=== PATIENT | female | born 1985 | race Caucasian/White ===

== ENCOUNTER 2016-11-19 16:50 | Inpatient (IN) | payer OTHER ==
[~2016-11-19 16:50] MED LIST: BUPIVACAINE (PF) 0.25% 30 ML VIAL ONE; SODIUM CHLORIDE 0.9% 100 ML BAG ONE; fentaNYL (PF) 50 MCG/ML 5 ML AMP ONE
[2016-11-19] MEDS ORDERED: OXYTOCIN 10 UNIT/ML 1 ML VIAL IM PRN (18:11)
[2016-11-19] MEDS ORDERED: LIDOCAINE 1% (PF) 10 MG/ML (30 ML SDV) SQ PRN (18:11)
[2016-11-19] MEDS ORDERED: METHYLERGONOVINE 0.2 MG/ML 1 ML AMP IM PRN (18:11)
[2016-11-19] MEDS ORDERED: CARBOPROST TROMETHAMINE 250 MCG/ML 1 ML AMP IM PRN (18:11)
[2016-11-19] MEDS ORDERED: TERBUTALINE 1 MG/ML VIAL SQ PRN (18:11)
[2016-11-19] MEDS ORDERED: OXYTOCIN 20 UNITS/1000 ML NS 1,000 ML IV SCH (18:15)
[2016-11-19] MEDS ORDERED: LACTATED RINGERS 1,000 ML IV SCH (18:15)
[2016-11-19] MEDS: LACTATED RINGERS 1,000 ML IV SCH (18:20)
[2016-11-19 18:23] LABS: Basophils % (A) 0 %; CH 27.3; CHCM 33.5; Eosinophils # (A) 0.3 k/uL (0-0.7); Eosinophils % (A) 2 %; HDW 3.25; HGB 11.6 gm/dL (11.4-16.0); Luc # (Auto) 0.23; Luc % (Auto) 1; Lymphocytes # (A) 0.8 k/uL (1.0-4.8); Lymphocytes % (A) 5 %; MCH 27.1 pg (25.0-35.0); MCHC 33.1 g/dL (31.0-37.0); MCV 81.9 fL (80.0-100.0); Mean Platelet Volume 7.1; Monocytes # (A) 0.6 k/uL (0-1.0); Monocytes % (A) 3 %; Neutrophils # (A) 15.3 k/uL (1.3-7.7); Neutrophils % (A) 89 %; RBC 4.28 m/uL (3.80-5.40); RDW 13.6 % (11.5-15.5); WBC 17.2 k/uL (3.8-10.6); WBC (Perox) 18.76
[2016-11-19 18:31] LABS: Prothrombin Time 9.8 sec (9.0-12.0)
[2016-11-19 18:50] LABS: Partial Thromboplastin Time 20.8 sec (22.0-30.0)
[2016-11-19 19:51] VITALS: BMI 31.9
[2016-11-19] MEDS: BUTORPHANOL 1 MG/ML 1 ML VIAL IV PRN (23:58)
[2016-11-20] MEDS: LACTATED RINGERS 1,000 ML IV SCH (00:10)
[2016-11-20] MEDS: BUTORPHANOL 1 MG/ML 1 ML VIAL IV PRN ×2 (03:31→08:01)
[2016-11-20] MEDS ORDERED: PENICILLIN G POTASSIUM 5,000,000 UNIT in DEXTROSE 5% IN WATER 100 ML IVPB STA ×2 (06:35)
--- NOTE | 2016-11-20 07:32 | P.HPOB ---
History of Present Illness H&P Date: 11/20/16 This is a 31-year-old female 5 para 3013 EDC 12/01/2016 at 38-2/7 weeks ' gestation. Patient presents to labor and delivery with a history of leaking fluid. She denies uterine contractions. Fetus is been active throughout the . Fluid was clear per her recall, she denies vaginal bleeding. Current medications Lovenox 40 mg daily vitamin daily Past medical history is significant for kidney stones. Past surgical history cholecystectomy, colposcopy, removal of kidney stone. ALLERGIES none known. Family history significant for diabetes and hypertension. We ko history blood type is A+, rubella status immune. VDRL testing, hepatitis B surface antigen, HIV testing, group B strep cultures negative. Gonorrhea cultures negative. One-hour Glucola 97. On exam this is a pleasant female, 5 foot 5 inches, 182 pounds, vital signs are stable and she is afebrile. The general physical exam is within normal limits. In checking the cervix there is a fore bag, this is ruptured for clear fluid. Cervix is 2-3 cm, posterior, -2 station, vertex presentation, 50% effaced. heart tones are consistent with reactive NST. Impression: 38-2/7 weeks intrauterine , history of spontaneous rupture membranes but fore bag ruptured at this time. Early labor. Plan: Penicillin prophylaxis for history of possible prolonged ruptured membranes. Oxytocin per hospital protocol. Close maternal and surveillance. Anticipating normal spontaneous vaginal delivery. Past Medical History Past Medical History: Deep Vein Thrombosis (DVT) Additional Past Medical History / Comment(s): pancreatisis. on heptrin injections with preg History of Any Multi-Drug Resistant Organisms: None Reported Additional Past Surgical History / Comment(s): 2010 pancreatic surgery Past Anesthesia/Blood Transfusion Reactions: No Reported Reaction Past Psychological History: No Psychological Hx Reported Smoking Status: Never smoker Past Drug Use History: None Reported - Past Family History Father Family Medical History: Diabetes Mellitus, Hypertension Medications and Allergies Home Medications Medication Instructions Recorded Confirmed Type Pnv with Ca,No.72/Iron/FA 1 tab PO DAILY 11/19/16 11/19/16 History [ Plus Tablet] Allergies Allergy/AdvReac Type Severity Reaction Status Date / Time No Known Allergies Allergy Verified 11/19/16 19:52 Exam - Vital Signs Vital signs: Vital Signs Temp Pulse Resp BP 11/19/16 19:00 97.2 F L 108 H 16 138/86 Intake and Output 11/19/16 11/20/16 11/20/16 22:59 06:59 14:59 Other: Weight 87.09 kg Results Result Diagrams: 11/19/16 18:15 Abnormal Lab Results - Last 24 Hours (Table) 11/19/16 11/19/16 Range/Units 18:15 18:15 WBC 17.2 H (3.8-10.6) k/uL Neutrophils # 15.3 H (1.3-7.7) k/uL Lymphocytes # 0.8 L (1.0-4.8) k/uL APTT 20.8 L (22.0-30.0) sec
[2016-11-20] MEDS ORDERED: diphenhydrAMINE 25 MG CAP PO PRN (11:21)
[2016-11-20] MEDS ORDERED: HYDROCORTISONE 2.5% RECTAL CREAM 30 GM TUBE RECTAL PRN (11:21)
[2016-11-20] MEDS ORDERED: diphenhydrAMINE ELIXIR 25 MG/10 ML CUP PO PRN (11:21)
[2016-11-20] MEDS ORDERED: ZOLPIDEM 5 MG TAB PO PRN (11:21)
[2016-11-20] MEDS ORDERED: ACETAMINOPHEN TAB 325 MG TAB PO PRN (11:21)
[2016-11-20] MEDS ORDERED: diphenhydrAMINE 50 MG CAP PO PRN (11:21)
[2016-11-20] MEDS ORDERED: WITCH HAZEL 1 EACH MED..PAD TOPICAL PRN (11:21)
[2016-11-20] MEDS ORDERED: SIMETHICONE 80 MG CHEWABLE PO PRN (11:21)
[2016-11-20] MEDS ORDERED: BENZOCAINE/MENTHOL SPRAY 1 GM/SPRAY AEROSOL TOPICAL PRN (11:21)
[2016-11-20] MEDS ORDERED: diphenhydrAMINE 50 MG/ML 1 ML VIAL IVP PRN ×2 (11:21)
[2016-11-20] MEDS ORDERED: LANOLIN CREAM 5 GM TUBE TOPICAL PRN (11:21)
--- NOTE | 2016-11-20 11:21 | P.PROBDLV ---
Vaginal Delivery Note - . Vaginal Delivery Note: This is a 31-year-old 5 para 3013 EDC 12/01/2016 at 38-2/7 weeks' gestation. Patient presented to labor and delivery with spontaneous amniorrhexis, clear fluid. She was noted to be unfavorable, posterior, high, long, 1-2 cm dilated. is remarkable for patient being on heparin therapy for history of PE in the past. Recommendation was made for Lovenox but patient states her insurance would not cover that medication. Blood type is A+ , group B strep cultures negative, please see my dictated history and physical for details. Oxytocin was started and titrated per hospital protocol. Artificial amniorrhexis of a fore bag revealed clear fluid. Antibiotics were given for history of prolonged ruptured membranes over 12 hours. Epidural was placed per her request. Patient became completely dilated at 11 AM. Perineal body was prepped and draped in usual sterile fashion. With excellent expulsive efforts the infant's head delivered occiput anterior and restituted accordingly. There was a nuchal cord 1 that was reduced on the perineal body. The left or anterior shoulder was then gently and easily delivered from underneath the pubic symphysis at which time the oral pharynx, nasopharynx and external nares were all bulb suctioned on the perineal body. Patient was officially delivered of a liveborn female at 1106 hrs. Umbilical cord was doubly clamped and ligated, she was handed to waiting nurses for evaluation where scores of 9 and 9 at one and 5 minutes respectively were given. The placenta delivered spontaneous spontaneously, it was inspected and noted to be intact with trivascular cord at 1112 hours. At this time the perineal body was redraped. Inspection of the cervix, vagina, perineum and periurethral areas revealed no lacerations or defects. Fundus is firm and in the midline, symmetric and 18 week size upon completion of delivery. Total estimated blood loss 300 mL's. Infant weighed 8 lbs. 7 oz. or 3830 g. I will restart her Lovenox as recommended by high-risk team.
[2016-11-20] MEDS: IBUPROFEN 600 MG TAB PO PRN ×2 (14:53→21:34)
[2016-11-21] MEDS: Acetaminophen-Codeine 300-30mg TAB PO PRN ×2 (00:24→20:15)
[2016-11-21] MEDS: SENNOSIDES-DOCUSATE SODIUM 1 EACH TAB PO SCH ×3 (02:33→20:16)
[2016-11-21] MEDS: IBUPROFEN 600 MG TAB PO PRN ×2 (07:58→16:16)
[2016-11-21] MEDS: ENOXAPARIN 40 MG/0.4 ML SYRINGE SQ SCH (07:59)
--- NOTE | 2016-11-21 10:50 | P.PNOBGVD ---
Subjective - Subjective Patient reports: Reports appetite normal, Reports voiding normally, Reports pain well controlled, Reports ambulating normally : doing well Objective - Latest Vital Signs Latest vital signs: Vital Signs Temp Pulse Resp BP 11/21/16 08:00 97.9 F 90 16 114/73 11/21/16 00:00 98.2 F 101 H 16 105/60 11/20/16 20:00 98.0 F 106 H 16 108/59 11/20/16 16:30 98.1 F 99 16 118/75 11/20/16 13:15 105 H 16 138/84 11/20/16 12:40 97.4 F L 103 H 16 129/85 11/20/16 12:10 108 H 16 120/69 11/20/16 11:55 109 H 16 123/73 11/20/16 11:40 106 H 16 129/78 11/20/16 11:25 111 H 16 125/65 11/20/16 11:10 114 H 16 113/59 Intake and Output 11/20/16 11/21/16 11/21/16 22:59 06:59 14:59 Other: # Voids 1 - Exam Lungs: bilateral: normal Chest: Normal S1, Normal S2 Extremities: Present: normal Abdomen: Present: normal appearance, soft Uterus: Present: normal, firm (The fundus as tonic and nontender at the umbilicus.) Assessment and Plan (1) History of pulmonary embolism Current Visit: Yes Status: Acute Code(s): Z86.711 - PERSONAL HISTORY OF PULMONARY EMBOLISM SNOMED Code(s): 577185250 (2) Normal spontaneous vaginal delivery Narrative/Plan: Continue routine care. The infant continues to be under observation for prolonged rupture of membranes though white count was normal. I anticipate discharge home tomorrow. She continues to be on Lovenox 40 mg daily and will be discharged home on heparin 5000 mg subcutaneously twice daily as this is what her insurance will cover. This will continue for 6 weeks time. Current Visit: Yes Status: Acute Code(s): O80 - ENCOUNTER FOR FULL-TERM UNCOMPLICATED DELIVERY SNOMED Code(s): 92642584
[2016-11-21] MEDS: LACTATED RINGERS 1,000 ML IV SCH (17:04)
[2016-11-22] MEDS: IBUPROFEN 600 MG TAB PO PRN (04:56)
[2016-11-22 08:48] VITALS: BP 101/55; PULSE 88; RESP 18; TEMP 98
[2016-11-22] MEDS: SENNOSIDES-DOCUSATE SODIUM 1 EACH TAB PO SCH (08:49)
--- NOTE | 2016-11-22 08:53 | P.DS ---
Providers Date of admission: 11/19/16 18:16 Expected date of discharge: 11/22/16 Attending physician: Juanito Shipley Primary care physician: Stated None - Discharge Diagnosis(es) (1) History of pulmonary embolism Current Visit: Yes Status: Acute (2) Normal spontaneous vaginal delivery Current Visit: Yes Status: Acute Hospital Course: The patient is a 31-year-old 5 para 3013 admitted at 38-2/7 weeks by good dating parameters. She is admitted to labor and delivery with documented spontaneous rupture of membranes not in labor. Her was complicated by a history of a previous pulmonary embolism for which she has been on Lovenox and heparin throughout the . There been no other complications. On labor and delivery, she had Pitocin augmentation started followed by an epidural analgesic. She ultimately had antibiotic prophylaxis started as she reached the diagnosis of prolonged rupture of membranes. She did ultimately progress through the active phase of labor to complete where she then pushed quickly to a normal spontaneous vaginal delivery of a viable 8 lbs. 7 oz. baby girl with Apgars of 9 at 1 minute and 9 at 5 minutes. Her course was uncomplicated though the was kept in the hospital for 48 hours of observation secondary to prolonged rupture of membranes. She was deemed stable for discharge by day #2 was discharged home to follow-up in the office in 6 weeks' time routinely. Discharge instructions included calling for any significantly increased bleeding or foul-smelling lochia, significantly increased fever or abdominal pain, perineal complaints, breast complaints, or anything else that concerned her. She was additionally instructed to have nothing in the vagina for at least 6 weeks time to include intercourse. She understood her instructions and agrees to follow up as noted above. Discharge medications included [id number] analgesic pain medications as well as continued heparin 5000 units subcutaneously twice daily for a total of 6 weeks . Maternal blood type is A+ and rubella status is immune. Procedures: #1. Pitocin augmentation #2. Epidural analgesia #3. Antibiotic prophylaxis # 4. Normal spontaneous vaginal delivery Patient Condition at Discharge: Good Plan - Discharge Summary Discharge Medication List Pnv with Ca,No.72/Iron/FA [ Plus Tablet] 1 tab PO DAILY 11/19/16 [ History] Follow up Appointment(s)/Referral(s): Juanito Shipley MD [STAFF PHYSICIAN] - 6 Weeks Discharge Disposition: HOME SELF-CARE
[2016-11-22] MEDS: ENOXAPARIN 40 MG/0.4 ML SYRINGE SQ SCH (09:48)
== END 2016-11-22 14:48 | disposition home or self-care (01) | DRG 775 ==
LOC: FBPOP 16:50 → 4FBP 18:16
PROVIDERS: ADMIT Obstetrics & Gynecology; ATTEND Obstetrics & Gynecology
PROC: 10907ZC Drainage of Amniotic Fluid, Therapeutic from Products of Conception, Via Natural or Artificial Opening (ICD-10-PCS; principal; 2016-11-20)
PROC: 10E0XZZ Delivery of Products of Conception, External Approach (ICD-10-PCS; 2016-11-20)
DX: O42.92 Full-term premature rupture of membranes, unspecified as to length of time between rupture and onset of labor (principal); O69.81X0 Labor and delivery complicated by cord around neck, without compression, not applicable or unspecified; Z37.0 Single live birth; Z3A.38 38 weeks gestation of pregnancy; Z86.711 Personal history of pulmonary embolism; Z87.442 Personal history of urinary calculi
CPT/HCPCS: 59025; 84112; 85025; 85610; 85730; 88307; 99213

== ENCOUNTER → 2019-02-05 | Outpatient (CLI) | payer OTHER ==
[2019-02-05 15:29] LABS: Basophils % (A) 0 %; Eosinophils # (A) 0.1 k/uL (0-0.7); Eosinophils % (A) 1 %; HCT 39.3 % (34.0-46.0); HGB 12.9 gm/dL (11.4-16.0); Lymphocytes # (A) 1.4 k/uL (1.0-4.8); Lymphocytes % (A) 10 %; MCHC 32.8 g/dL (31.0-37.0); MCV 82.4 fL (80.0-100.0); Monocytes # (A) 0.5 k/uL (0-1.0); Monocytes % (A) 4 %; Neutrophils # (A) 11.1 k/uL (1.3-7.7); Neutrophils % (A) 84 %; Platelet Count 445 k/uL (150-450); RBC 4.77 m/uL (3.80-5.40); RDW 13.9 % (11.5-15.5); WBC 13.3 k/uL (3.8-10.6)
== END | disposition home or self-care (01) ==
LOC: LABPAT 14:19
PROVIDERS: ATTEND Obstetrics & Gynecology
DX: Z01.812 Encounter for preprocedural laboratory examination (principal)
CPT/HCPCS: 36415; 85025

== ENCOUNTER 2019-02-07 07:12 | Day surgery (SDC) | payer OTHER ==
[2019-02-04 18:30] VITALS: BMI 28.1
[~2019-02-07 07:12] MED LIST changes: -BUPIVACAINE (PF) 0.25% 30 ML VIAL ONE; +DEXAMETHASONE SOD PHOSPHATE 10 MG/ML 1 ML VIAL IV ONE; +HYDROmorphone 0.5 MG/0.5 ML SYRINGE IVP PRN; +LACTATED RINGERS 1,000 ML IV SCH; +MIDAZOLAM 2 MG/2 ML VIAL IV PRN; +ONDANSETRON 4 MG/2 ML VIAL IVP ONE; +Pre Op ABX Message 1 EACH MISC MISCELLANE ONE; -SODIUM CHLORIDE 0.9% 100 ML BAG ONE; -fentaNYL (PF) 50 MCG/ML 5 ML AMP ONE
[2019-02-07] MEDS ORDERED: LIDOCAINE 1% 20 ML VIAL (10MG/ML) FOR IV START IV ONE (07:30)
[2019-02-07] MEDS ORDERED: PROPOFOL 10 MG/ML 20 ML VIAL IV ONE (08:30)
[2019-02-07] MEDS ORDERED: LIDOCAINE 1% INJ 10MG/ML (20 ML MDV) ONE (08:30)
[2019-02-07] MEDS ORDERED: fentaNYL (PF) 50 MCG/ML 2 ML AMP ONE (08:30)
[2019-02-07] MEDS ORDERED: MIDAZOLAM 2 MG/2 ML VIAL ONE (08:30)
[2019-02-07] MEDS ORDERED: KETOROLAC 30 MG/ML 1 ML VIAL ONE (08:30)
[2019-02-07] MEDS ORDERED: IODINE/POTASS IOD (LUGOLS) 8 ML BTL TOPICAL ONE ×3 (08:38→14:01)
[2019-02-07] MEDS ORDERED: SIMETHICONE 80 MG CHEWABLE PO PRN (08:44)
[2019-02-07] MEDS ORDERED: ONDANSETRON 4 MG/2 ML VIAL IVP PRN (08:44)
[2019-02-07] MEDS ORDERED: IBUPROFEN 600 MG TAB PO PRN (08:44)
[2019-02-07] MEDS ORDERED: diphenhydrAMINE 50 MG/ML 1 ML VIAL IVP PRN (08:44)
[2019-02-07] MEDS ORDERED: KETOROLAC 30 MG/ML 1 ML VIAL IVP PRN (08:44)
[2019-02-07] MEDS ORDERED: Acetaminophen-Codeine 300-30mg TAB PO PRN ×2 (08:44)
[2019-02-07] MEDS ORDERED: METOCLOPRAMIDE 5 MG/ML 2 ML VIAL IVP PRN (08:44)
[2019-02-07] MEDS ORDERED: LACTATED RINGERS 1,000 ML IV SCH (08:45)
[2019-02-07] MEDS ORDERED: FERRIC SUBSULFATE (MONSELS) JAR TOPICAL ONE ×2 (09:05)
--- NOTE | 2019-02-07 09:19 | P.OP ---
Date of Procedure: 02/07/19 Preoperative Diagnosis: #1. Endo and ectocervical THELMA-3 Postoperative Diagnosis: Same Procedure(s) Performed: #1. Cold knife cervical cone Anesthesia: other (Gen. by face mask) Surgeon: Juanito Shipley Estimated Blood Loss (ml): 25 IV fluids (ml): 500 Urine output (ml): 100 Pathology: other (Cervical cone) Condition: stable Disposition: PACU Operative Findings: Preoperatively, there was relatively diffuse nonstaining tissue along the posterior lip of the cervix from approximately 4:00 to 7:00. The cone was taken to a depth of approximately 2 cm and appeared to be entirely intact the patient's tissue was very soft and friable and also difficult to cauterize. Patient is a borderline candidate for vaginal hysterectomy should it become necessary. Description of Procedure: The patient was prepped and draped in usual fashion after general anesthesia was administered by the anesthesiologist. A weighted speculum was placed and the cervix grasped with a single-tooth tenaculum which very quickly tore through the cervix. It was replaced with an Allis clamp and stay sutures placed from 2:00 to 4:00 and 8:00 to 10:00 at the cervicovaginal junction into the cervical body and firmly tied down. The first placement at 2:00 to 4:00 immediately tore through the tissue as well. A deeper stitch remained in place. The cervix was then stained with Lugol's iodine and the nonstaining areas noted with most prominent areas on the posterior lip of the cervix. A uterine sound was placed into the uterus to the fundus to allow guidance of the cone. An 11 blade scalpel was utilized to take a cone to include all the nonstaining areas, approximately 1-1/2 cm across at the ectocervical margin to a depth of approximately 2 cm after which time the sound was removed and the cone grasped with an Allis clamp allowing it to be amputated at its deepest margin and sent for pathological diagnoses. Ball cautery and Monsel solution were utilized to control the bleeding she did have continued minimal oozing despite use of both methods. Stay sutures were left in place but trimmed short and all instrument a she removed. Estimated blood loss for the case was roughly 25 mL. There were no complications. All sponge, instrument, needle counts were correct. The patient tolerated the procedure well and proceeded to the recovery room in stable condition.
[2019-02-07 09:31] VITALS: TEMP 97
[2019-02-07 09:34] VITALS: RESP 18
[2019-02-07 10:43] VITALS: BP 109/73; PULSE 73
== END 2019-02-07 10:38 | disposition home or self-care (01) ==
LOC: OR 07:12
PROVIDERS: ATTEND Obstetrics & Gynecology
DX: D06.0 Carcinoma in situ of endocervix (principal); D06.1 Carcinoma in situ of exocervix; Z90.49 Acquired absence of other specified parts of digestive tract; Z87.442 Personal history of urinary calculi; Z98.890 Other specified postprocedural states; Z83.3 Family history of diabetes mellitus; Z82.49 Family history of ischemic heart disease and other diseases of the circulatory system; Z81.8 Family history of other mental and behavioral disorders; Z87.891 Personal history of nicotine dependence; Z79.899 Other long term (current) drug therapy; Z79.3 Long term (current) use of hormonal contraceptives
CPT/HCPCS: 57520; 81025; 88307; J2250; J1100; J2405; J2001; J3010; J1885; J2704